=== PATIENT | male | born 2000 | race Caucasian/White ===

== ENCOUNTER 2021-07-15 14:28 | Emergency (ER) | payer SELFPAY ==
[2021-07-15 17:03] LABS: SARS-COV-2 RT PCR POSITIVE (NEGATIVE)
--- NOTE | 2021-07-15 17:04 | ER ---
Nurse's Notes [facility] Name: William Kapadia Age: 21 yrs Sex: Male : 2000 Arrival Date: 07/15/2021 Time: 14:30 Bed 10 Private MD: Diagnosis: Coronavirus infection, unspecified Presentation: 07/15 14:35 Chief complaint: Patient states: "I am having really bad sinus pressure and it jd3 occasionally affecting my vision and causing nose bleeds.". Coronavirus screen: At this time, the client does not indicate any symptoms associated with coronavirus-19. Ebola Screen: Patient negative for fever greater than or equal to 101.5 degrees Fahrenheit, and additional compatible Ebola Virus Disease symptoms. Initial Sepsis Screen: Does the patient meet any 2 criteria? No. Patient's initial sepsis screen is negative. Does the patient have a suspected source of infection? No. Patient's initial sepsis screen is negative. Risk Assessment: Do you want to hurt yourself or someone else? Patient reports no desire to harm self or others. Onset of symptoms was July 14, 2021. 14:35 Method Of Arrival: Ambulatory jd3 14:35 Acuity: DEBRA 4 jd3 Triage Assessment: 14:51 Pain: Pain began 2-3 days ago. Also complains of pressure/pain behind eyes. nosebleeds. es2 14:52 Headache History: The patient has had previous headaches. General: Appears well es2 developed, well nourished. Pain: Complains of pain in face Pain currently is 4 out of 10 on a pain scale. Historical: - Allergies: 14:37 No Known Allergies; jd3 - Home Meds: 14:37 None [Active]; jd3 - PMHx: 14:37 None; jd3 - PSHx: 14:37 None; jd3 - Immunization history:: Adult Immunizations up to date, Client reports having NOT received the Covid vaccine. - Social history:: Smoking status: Reported history of juuling and/or vaping. Screenin:51 Abuse screen: Denies threats or abuse. Denies injuries from another. Nutritional es2 screening: No deficits noted. Tuberculosis screening: No symptoms or risk factors identified. Fall Risk Gait- Normal/Bed Rest/Wheelchair (0 pts). Assessment: 14:48 Reassessment: Patient and/or family updated on plan of care and expected duration. Pain es2 level reassessed. Patient is alert, oriented x 3, equal unlabored respirations, skin warm/dry/pink. Pt in for nose bleed, sinus symptoms. nose bleed started yesterday. headache for few days. states when nose bleeds, pressure is relieved. General: Appears slender, Behavior is cooperative, appropriate for age. Pain: Complains of pain in face Pain currently is 4 out of 10 on a pain scale. Neuro: Level of Consciousness is awake, alert, obeys commands, Oriented to person, place, time, situation, Appropriate for age Gait is steady, Speech is normal. Cardiovascular: Capillary refill < 3 seconds Patient's skin is warm and dry. Respiratory: Airway is patent Respiratory effort is even, unlabored, Respiratory pattern is regular, symmetrical. GI: No signs and/or symptoms were reported involving the gastrointestinal system. : No signs and/or symptoms were reported regarding the genitourinary system. EENT: Reports nasal congestion pain. Derm: Skin temperature is warm. Musculoskeletal: Range of motion: intact in all extremities. Vital Signs: 14:37 BP 125 / 82; Pulse 48; Resp 16 S; Temp 98.8(TE); Pulse Ox 99% on R/A; Weight 81.65 kg jd3 (R); Height 6 ft. 2 in. (187.96 cm) (R); Pain 5/10; 14:37 Body Mass Index 23.11 (81.65 kg, 187.96 cm) jd3 ED Course: 14:30 Patient arrived in ED. as 14:36 Triage completed. jd3 14:38 Arm band placed on. jd3 14:39 Abigail Melo, RN is Primary Nurse. es2 14:52 Patient has correct armband on for positive identification. Bed in low position. es2 14:52 No provider procedures requiring assistance completed. es2 14:55 Dania Philippe F[facility]-C [facility]. kb 14:55 Pito Ventura MD is Attending Physician. kb 17:19 Patient did not have IV access during this emergency room visit. es2 Administered Medications: No medications were administered Outcome: 17:03 Discharge ordered by . kb 17:19 Discharged to home ambulatory. es2 17:19 Condition: stable 17:19 Discharge instructions given to patient. 17:20 Patient left the ED. es2 Signatures: Dania Philippe, [facility]-Dayna Ann Jonathon RN RN jd3 Abigail Melo RN RN es2
--- NOTE | 2021-07-15 17:05 | EDPHYS ---
Physician Documentation [facility] Name: William Kapadia Age: 21 yrs Sex: Male : 2000 Arrival Date: 07/15/2021 Time: 14:30 Bed 10 Private MD: ED Physician Pito Ventura HPI: 07/15 16:59 This 21 yrs old Male presents to ER via Ambulatory with complaints of Sinus kb Pain, Nose Bleed, Eye Pain. 16:59 Onset: The symptoms/episode began/occurred 1 week(s) ago. The patient has not recently kb seen a physician. 17:00 The patient presents with a nose bleed. Modifying factors: The symptoms are alleviated kb by nothing. the symptoms are aggravated by nothing. Associated signs and symptoms: Loss of consciousness: the patient experienced no loss of consciousness, Pertinent positives: rhinorrhea, nasal congestion. Severity of symptoms: At their worst the symptoms were mild moderate in the emergency department the symptoms are unchanged. The patient has not experienced similar symptoms in the past. Pt reports sinus congestion, rhinorrhea and nose bleeds for a week. Reports slight cough that has now developed. Historical: - Allergies: 14:37 No Known Allergies; jd3 - Home Meds: 14:37 None [Active]; jd3 - PMHx: 14:37 None; jd3 - PSHx: 14:37 None; jd3 - Immunization history:: Adult Immunizations up to date, Client reports having NOT received the Covid vaccine. - Social history:: Smoking status: Reported history of juuling and/or vaping. ROS: 16:58 Constitutional: Negative for fever, chills, and weight loss. kb 16:58 ENT: Positive for nose bleed, sinus congestion, sinus pain. 16:58 Respiratory: Positive for cough, Negative for dyspnea on exertion, hemoptysis, orthopnea, pleurisy, shortness of breath, sputum production, wheezing. 16:58 All other systems are negative. Exam: 16:58 Constitutional: This is a well developed, well nourished patient who is awake, alert, kb and in no acute distress. Head/Face: Normocephalic, atraumatic. ENT: Moist Mucous membranes Respiratory: Respirations even and unlabored. No increased work of breathing, no retractions or nasal flaring. Skin: Warm, dry with normal turgor. Normal color. MS/ Extremity: Pulses equal, no cyanosis. Neurovascular intact. Full, normal range of motion. Neuro: Awake and alert, GCS 15, oriented to person, place, time, and situation. Moves all extremities. Normal gait. Psych: Awake, alert, with orientation to person, place and time. Behavior, mood, and affect are within normal limits. Vital Signs: 14:37 BP 125 / 82; Pulse 48; Resp 16 S; Temp 98.8(TE); Pulse Ox 99% on R/A; Weight 81.65 kg jd3 (R); Height 6 ft. 2 in. (187.96 cm) (R); Pain 5/10; 14:37 Body Mass Index 23.11 (81.65 kg, 187.96 cm) jd3 MDM: 14:55 Patient medically screened. kb 16:58 Data reviewed: vital signs, nurses notes. Data interpreted: Pulse oximetry: on room air kb is 99 %. Interpretation: normal. Counseling: I had a detailed discussion with the patient and/or guardian regarding: the historical points, exam findings, and any diagnostic results supporting the discharge/admit diagnosis, lab results, the need for outpatient follow up, a family practitioner, to return to the emergency department if symptoms worsen or persist or if there are any questions or concerns that arise at home. 07/15 15:02 Order name: COVID-19 : Document "Date of Symptom Onset" if Symptomatic. 07/15 15:02 Order name: Flu 07/15 15:03 Order name: Influenza Screen (A EDMS 07/15 17:04 Order name: COVID-19/FLU A+B; Complete Time: 17:09 EDMS Administered Medications: No medications were administered Disposition: 21:16 Co-signature as Attending Physician, Pito Ventura MD I agree with the assessment and kdr plan of care. Disposition Summary: 07/15/21 17:03 Discharge Ordered Location: Home kb Condition: Stable kb Diagnosis - Coronavirus infection, unspecified kb Followup: kb - With: Emergency Department - When: As needed - Reason: Worsening of condition Followup: kb - With: Private Physician - When: 2 - 3 days - Reason: Recheck today's complaints, Continuance of care, Re-evaluation by your physician Discharge Instructions: - Discharge Summary Sheet kb - COVID-19 kb - COVID-19 Frequently Asked Questions kb - 10 Things You Can Do to Manage Your COVID-19 Symptoms at Home - [facility] kb Forms: - Medication Reconciliation Form kb - Thank You Letter kb - Antibiotic Education kb - Prescription Opioid Use kb Signatures: Dispatcher [employer] EDMS Dania Philippe FNP-C FNP-Ckb Rittger, Kevin, MD MD kdr Davies, Jonathon, RN RN jd3 Corrections: (The following items were deleted from the chart) 15:45 15:03 CORONAVIRUS ordered. EDMS EDMS
[2021-07-15 17:46] VITALS: BP 125/82; TEMP 98.8; O2SAT 99
== END 2021-07-15 17:20 | disposition home or self-care (01) ==
LOC: ER 14:28
DX: U07.1 COVID-19 (principal)
CPT/HCPCS: 0240U; 99281